=== PATIENT | male | born 1980 | race Caucasian/White ===

== ENCOUNTER 2019-01-01 04:54 | Day surgery (SDC) | payer BC ==
[2019-01-01] MEDS ORDERED: Mag-Al 1200 mg/1200 mg/30 ML UDCUP ONE (05:38)
[2019-01-01] MEDS ORDERED: Lidocaine Viscous Sol 2% 15 ml UD Cup ONE (05:38)
[2019-01-01 05:39] LABS: Bilirubin Negative (Negative); Blood, Urine Negative (Negative); Clarity CLEAR (Clear); Glucose, Urine (Dipstick) Negative (Negative); Leukocyte Negative (Negative); Nitrite Negative (Negative); Protein, Urine (Dipstick) Negative (Neg-Trace); Specific Gravity, Urine 1.016 (1.002-1.036); Urobilinogen 0.2 mg/dL (0.2-1.0); pH, Urine 5.5 (5.0-9.0)
[2019-01-01 06:02] LABS: #Eosinphils 0.1 thou/uL (0.0-0.7); #Lymphocytes 1.3 thou/uL (1.20-3.40); #Monocytes 0.6 thou/uL (0.11-0.59); #Neutrophils 9.4 thou/uL (1.40-6.50); %Basophils 0.3 % (0.0-1.0); %Eosinophils 1.1 % (0.0-10.0); %Lymphocytes 11.5 % (21.0-51.0); %Monocytes 5.6 % (0.0-10.0); %Neutrophils 81.5 % (42.0-75.0); Hemoglobin 15.5 g/dL (14.0-18.0); Mean Corpuscular HGB CONC 33.5 g/dL (32.0-36.0); Mean Corpuscular Hemoglobin 31.2 pg (27.0-31.0); Mean Platelet Volume 8.8 fL (7.4-10.4); Platelet Count 235 thou/uL (130-400); RBC Distribution Width 11.8 % (11.5-14.5); Red Blood Cell (RBC) Count 4.97 mill/uL (4.70-6.10); White Blood Cell (WBC) Count 11.5 thou/uL (4.8-10.8)
[2019-01-01 06:26] LABS: ALT (SGPT) 16 U/L (8-55); AST (SGOT) 19 U/L (5-34); Albumin 4.6 g/dL (3.5-5.0); Alkaline Phosphatase 105 U/L (40-150); Anion Gap 13 mmol/L (10-20); BUN (Urea Nitrogen) 12 mg/dL (8.9-20.6); Bilirubin, Total 1.3 mg/dL (0.2-1.2); Calc. Creatinine Clearance 0 mL/min (70-130); Calcium 9.9 mg/dL (7.8-10.44); Carbon Dioxide 26 mmol/L (22-29); Chloride 101 mmol/L (98-107); Estimated GFR-MDRD 86; Globulin 2.9 g/dL (2.4-3.5); Glucose 115 mg/dL (70-105); Lipase 23 U/L (8-78); Potassium 3.8 mmol/L (3.5-5.1); Protein, Total 7.5 g/dL (6.0-8.3); Sodium 136 mmol/L (136-145)
--- NOTE | 2019-01-01 06:49 | RAD ---
CHEST: HISTORY: Right upper quadrant abdominal pain. COMPARISON: None. FINDINGS: Single view of the chest show normal sized cardiomediastinal silhouette. There is no evidence of cons olidation, mass, or pleural effusion. The bones are unremarkable. IMPRESSION: No evidence of acute cardiopulmonary disease. POS: [facility]
--- NOTE | 2019-01-01 07:10 | ULT ---
GALLBLADDER ULTRASOUND: CLINICALLY INDICATIONS: Pain. FINDINGS: There is evidence of cholelithiasis. The gallbladder wall is prominent at 3 mm. No ascites. No foc al hepatic lesion. The common duct measures 4 mm. There is mild increased echogenicity of the hepat ic parenchyma. IMPRESSION: 1. Evidence of cholelithiasis. 2. Borderline gallbladder wall thickening. Correlate clinically to exclude evidence of cholecystitis. POS: [facility]
[2019-01-01] MEDS ORDERED: Morphine 4 MG/ML VIAL ONE (07:48)
[2019-01-01] MEDS ORDERED: Piperacillin/Tazobactam 3.375 GM VIAL ONE (07:48)
[2019-01-01] MEDS ORDERED: Fentanyl 250 MCG/5 ML VIAL ONE (09:32)
[2019-01-01] MEDS ORDERED: Midazolam HCl 2 mg/2 ml Vial ONE (09:32)
[2019-01-01] MEDS ORDERED: Bupivacaine/Epinephrine 0.25% 30 ML VIAL ONE (09:44)
--- NOTE | 2019-01-01 10:58 | HP ---
HISTORY OF PRESENT ILLNESS: Mr. Perez is a 38-year-old man, who presented with recurrent epigastric right upper quadrant abdominal pain. The pain has been intermittent over the last 2 to 3 weeks. The pain is usually exacerbated by eating and associated with nausea, but no emesis. The patient was awoken last night with recurrent epigastric right upper quadrant abdominal pain, at this time which failed to resolve. He denies any fevers or chills. Pain did not radiate. Last bowel movement was yesterday. Last time he passed flatus was 2 hours ago. PAST MEDICAL HISTORY: Pertinent for gastroesophageal reflux disease and hypothyroidism. PAST SURGICAL HISTORY: Denies any previous surgeries. SOCIAL HISTORY: He has been for 17 years. Lives at home with his family. He is employed in the [employer] industry. He admits to occasional intake of ethanol in moderate amounts. He also smokes half pack of cigarettes per day and done so for about 15 years. He denies any illicit drug abuse. FAMILY HISTORY: Pertinent for diabetes mellitus and essential hypertension in his mother. He denies any family history of heart disease or cancer. MEDICATIONS: Prilosec 20 mg p.o. daily and levothyroxine 150 mcg p.o. daily. ALLERGIES: ALLERGIES TO SULFA DRUGS. REVIEW OF SYSTEMS: Ten-point review of systems essentially unremarkable except as stated in past medical history and chief complaint. PHYSICAL EXAMINATION: GENERAL: This reveals a 38-year-old normally developed man, who is otherwise coherent and interactive and appears stated age. The patient is alert and oriented x3. He appears to be in no acute distress at time of my evaluation. VITAL SIGNS: Blood pressure 124/77, pulse 57, respiratory rate is 16, temperature is 98.6 degrees Fahrenheit, oxygen saturation is 98% on room air HEENT: Reveals normocephalic and atraumatic. Pupils are equal, round, reactive to light and accommodation. Extraocular muscles are intact bilaterally. No sclerae icterus present. Oral mucosa is pink and moist. No lesions are noted. NECK: Supple. No palpable lymphadenopathy or thyromegaly present. HEART: Reveals regular rate and rhythm. No murmurs or gallops auscultated. LUNGS: Clear to auscultation bilaterally. His breathing, regular and nonlabored. ABDOMEN: Soft with right upper quadrant tenderness to palpation. Liver and spleen are nonpalpable below costal margin. EXTREMITIES: Reveal 2+ radial and pedal pulses bilaterally. No ankle edema is present. NEUROLOGIC: Reveals no focal deficits present. LABORATORY DATA: Laboratory findings today includes CBC with 11,500 white blood cells, hemoglobin and hematocrit are 15.5 and 46.2 respectively. Platelet count is 235,000. Urinalysis is essentially unremarkable. Metabolic profile; sodium 136, potassium is 3.8, chloride is 101, bicarb is 26, BUN 12, creatinine is 0.98. Total bilirubin 1.3, AST and ALT are normal at 19 and 16 respectively. Alkaline phosphatase is 105. Serum lipase is normal at 23. I have personally reviewed the abdominal ultrasound, which is pertinent for intraluminal gallstone. There is gallbladder wall thickening at 3 mm. Common bile duct is normal in diameter for this patient's age at 4 mm. There is no significant pericholecystic fluid present. IMPRESSION: 1. Acute cholecystitis with cholelithiasis. 2. History of hypothyroidism. 3. History of gastroesophageal reflux disease. RECOMMENDATIONS: Laparoscopic cholecystectomy. Above findings and plan discussed with the patient, who indicates understanding information given. Also advised him of the risks and benefits of the proposed surgery to include, but not limited to bleeding, infection, injury to bile duct or surrounding structures. The patient indicates understanding of information provided him today in the presence of his nurse. I have answered his questions. The patient is going to consent for this admission and surgical intervention. Job ID: [id number]
[2019-01-01] MEDS ORDERED: Fentanyl 100 MCG/2 ML VIAL ONE (12:09)
[2019-01-01] MEDS ORDERED: Ondansetron HCl/PF 4 MG/2 ML Vial IVP PRN (13:01)
[2019-01-01] MEDS ORDERED: Non-Formulary Medication 1 EACH PO PRN (13:01)
[2019-01-01] MEDS ORDERED: Promethazine HCl 25 MG/ML VIAL IM/IV PRN (13:01)
--- NOTE | 2019-01-01 13:30 | OP ---
DATE OF PROCEDURE: 01/01/2019 PREOPERATIVE DIAGNOSES: Acute cholecystitis and cholelithiasis. POSTOPERATIVE DIAGNOSES: Acute cholecystitis and cholelithiasis. OPERATION PERFORMED: Laparoscopic cholecystectomy. ANESTHESIA: General endotracheal. ESTIMATED BLOOD LOSS: 25 mL. FLUIDS GIVEN: 1000 mL crystalloids. COUNTS: Sponge and instrument counts were verified as correct x2. COMPLICATIONS: None apparent at the time of operation. INDICATIONS FOR OPERATION: This is a 38-year-old man presented with recurrent epigastric right upper quadrant abdominal pain. Clinical radiographic examination was consistent with acute cholecystitis and cholelithiasis, for which the patient was brought to the operating room for cholecystectomy. Findings are consistent with enlarged gallbladder in the usual anatomic location, partially encased by omental adhesions. DESCRIPTION OF PROCEDURE: Informed consent was obtained from the patient, he was brought to the operating room and placed in supine position. Following general endotracheal anesthesia, abdomen was sterilely prepped and draped in usual fashion. The skin below the umbilicus was infiltrated 0.25% Marcaine with epinephrine. A small curvilinear infraumbilical incision was made using 11 scalpel. Umbilical stalk grasped with Trell and elevated. Veress needle was inserted through the incision and placed in the peritoneal cavity through which the abdomen was insufflated with 3 L of CO2 gas. Intraabdominal pressure was noted at 2 mmHg. Veress needle was removed and a 5 mm trocar introduced using a Visiport under laparoscopy. Laparoscopy confirmed proper placement of the port. No injuries to underlying structures. Additional laparoscopy reveals gallbladder in the usual anatomic location, partially encased by omental adhesions. Under direct laparoscopy, a 12 mm epigastric and two 5 mm right lateral subcostal ports were placed after the overlying skin was infiltrated with 0.25% Marcaine with epinephrine and appropriate incision was made. The patient was placed in a reverse Trendelenburg position, rotated to his left. I introduced Prestige grasper through the right lateral subcostal port grasping the fundus of the gallbladder, which was elevated cephalad. I used a [place] dissector with cautery, omental adhesions were taken down from the remainder of the gallbladder. A second Prestige grasper was introduced through the right medial subcostal port grasping the Hector pouch, which was retracted laterally. The cystic duct was carefully dissected free from surrounding structures at the triangle of Calot. The duct was divided between clips, applying 2 clips proximally and 1 clip at the junction of the cystic duct and gallbladder. The cystic artery was carefully dissected free from surrounding structures and divided between clips in a similar fashion. The gallbladder itself was removed from the liver bed using cautery. There was minor oozing in the gallbladder fossa, which was readily controlled using 1 x 2 inch piece of fibrillar. The gallbladder delivered of the abdominal cavity using an EndoCatch. Finding no other pathology, laparoscopy was terminated. Fascia of the epigastric port was closed using 0 Vicryl suture and Endo Close device on the laparoscopy. The abdomen was desufflated. All ports and instruments were removed and accounted for. All skin incisions were closed using 4-0 Monocryl suture in subcuticular fashion. Dermabond was applied over incisional closure. The patient tolerated the operation without any apparent complication and was returned to the recovery room in satisfactory condition. Job ID: [id number]
[2019-01-01] MEDS ORDERED: Lidocaine 1% PF 5 ML VIAL ONE (14:48)
[2019-01-01] MEDS ORDERED: PROPOFOL 200 MG/20 ML VIAL ONE (14:48)
[2019-01-01] MEDS ORDERED: Rocuronium Bromide 10 MG/ML (10ML VIAL) ONE (14:48)
[2019-01-01] MEDS ORDERED: Dexamethasone 20 MG/5 ML VIAL ONE (14:48)
[2019-01-01] MEDS ORDERED: Ketorolac Tromethamine 30 MG/ML VIAL ONE (14:48)
[2019-01-01] MEDS ORDERED: Glycopyrrolate 0.2 MG/ML 5 ML SYRINGE ONE (14:48)
[2019-01-01] MEDS ORDERED: Ondansetron PF 4 MG/2 ML Vial ONE (14:48)
== END 2019-01-01 16:50 | disposition home or self-care (01) ==
LOC: ERS 04:54
PROVIDERS: ATTEND Surgery
PROC: 0FT44ZZ Resection of Gallbladder, Percutaneous Endoscopic Approach (ICD-10-PCS; principal; 2019-01-01)
DX: K80.12 Calculus of gallbladder with acute and chronic cholecystitis without obstruction (principal); E03.9 Hypothyroidism, unspecified; K21.9 Gastro-esophageal reflux disease without esophagitis; F17.210 Nicotine dependence, cigarettes, uncomplicated; Z79.899 Other long term (current) drug therapy
CPT/HCPCS: 71045; 76705; 80053; 81003; 83690; 85025; 88304; 93005; J0500; J1100; J1885; J2001; J2250; J2270; J2405; J2543; J2704; J3010